=== PATIENT | male | born 1945 | race Caucasian/White ===

== ENCOUNTER 2017-02-02 14:16 | Inpatient (IN) ==
--- NOTE | 2017-02-02 14:24 | Emergency Department Note ---
Disposition Clinical Impression: Dizziness Disposition: Admitted As Inpatient Condition: Good General Adult HPI - General Chief complaint: ED Neuro Symptoms/Deficit Stated complaint: Poss CVA Time Seen by Provider: 02/02/17 14:18 - Related Data Home Medications Medication Instructions Recorded Confirmed Acetaminophen [Tylenol] 650 mg PO Q6HR 02/02/17 02/02/17 Amitriptyline HCl 75 mg PO HS 02/02/17 02/02/17 Aspirin Enteric Coated [Aspirin EC] 81 mg PO Q72H 02/02/17 02/02/17 Carbidopa/Levodopa 10/100 [Sinemet 2 each PO TID 02/02/17 02/02/17 10/100] Cholecalciferol (D-3) [Vitamin D] 2,000 unit PO DAILY 02/02/17 02/02/17 Duloxetine HCl [Cymbalta] 120 mg PO DAILY 02/02/17 02/02/17 Furosemide [Lasix] 20 mg PO DAILY PRN 02/02/17 02/02/17 GuaiFENesin/Dextromethorphan 10 ml PO Q4H PRN 02/02/17 02/02/17 [Tussin Dm Syrup] Insulin ASPART [Novolog Flexpen] 20 unit SQ 0800,1200 02/02/17 02/02/17 Insulin ASPART [Novolog Flexpen] 22 unit SQ 1700 02/02/17 02/02/17 Insulin Glargine,Hum.rec.anlog 52 unit SQ BID 02/02/17 02/02/17 [Basaglar Kwikpen U-100] Lisinopril/Hydrochlorothiazide 1 each PO DAILY 02/02/17 02/02/17 [Zestoretic 20-25 mg Tablet] OXcarbazepine [Oxcarbazepine] 600 mg PO BID 02/02/17 02/02/17 Omeprazole [PriLOSEC] 20 mg PO DAILY 02/02/17 02/02/17 Pregabalin [Lyrica] 50 mg PO BID 02/02/17 02/02/17 Propranolol HCl [Inderal LA] 160 mg PO QAM 02/02/17 02/02/17 Rosuvastatin [Crestor] 40 mg PO HS 02/02/17 02/02/17 Terazosin HCl 2 mg PO HS 02/02/17 02/02/17 rOPINIRole [Requip] 1 mg PO TID 02/02/17 02/02/17 Allergies Allergy/AdvReac Type Severity Reaction Status Date / Time simvastatin AdvReac Muscle Pain Verified 02/02/17 16:20 Past Medical History - Past Medical History Medical history: Reports: CVA, diabetes, hypertension, myocardial infarction Surgical history: Reports: angioplasty/stent, orthopedic, other Psychiatric history: Reports: depression, PTSD - Social History Smoking Status: Former smoker Alcohol use: Reports: none Drug use: Reports: none Course Vital Signs Temperature 97.8 F 02/02/17 14:21 Pulse Rate 70 02/02/17 14:21 Respiratory Rate 18 02/02/17 14:21 Blood Pressure 147/79 02/02/17 14:21 O2 Sat by Pulse Oximetry 98 02/02/17 14:21 Temperature 98 F 02/03/17 05:46 Pulse Rate 70 02/03/17 05:46 Respiratory Rate 16 02/03/17 05:46 Blood Pressure 151/79 02/03/17 05:46 O2 Sat by Pulse Oximetry 95 02/03/17 04:14 Oxygen Delivery Oxygen Delivery Room Air Medical Decision Making - Lab Data Result diagrams: 02/02/17 14:29 02/03/17 06:15 Lab Results 02/02/17 02/02/17 02/02/17 Range/Units 14:20 14:29 14:29 WBC 5.6 (4.3-11.1) K/mcL RBC 4.37 (4.19-5.50) M/mcL Hgb 13.0 (12.9-16.9) g/dL Hct 39.9 (37.5-50.1) % MCV 91.3 (83.0-100.0) fL MCH 29.7 (28.0-33.3) pg MCHC 32.6 (31.6-35.5) g/dL RDW 13.3 (11.5-14.5) % Plt Count 108 L (140-400) K/mcL MPV 9.9 (9.4-12.4) fL Immature Gran % 0.4 (0-4) % Seg Neutrophils % 61.1 % Lymphocytes % 23.9 % Monocytes % 11.4 % Eosinophils % 2.5 % Basophils % 0.7 % Neutrophils # 3.4 (1.6-8.9) K/mcL Lymphocytes # 1.3 (0.6-4.6) K/mcL Monocytes # 0.6 (0.0-1.3) K/mcL Eosinophils # 0.1 (0.0-0.6) K/mcL Basophils # 0.0 (0.0-0.2) K/mcL Platelet Estimate Decreased L (Normal) Immature Plt Fraction 4.0 (1.1-6.1) % PT 11.6 (9.4-12.1) Seconds INR 1.1 Sodium (136-145) mEq/L Potassium (3.5-4.5) mEq/L Chloride (98-109) mEq/L Carbon Dioxide (19-29) mEq/L BUN (8-26) mg/dL Creatinine (0.72-1.25) mg/dL Est GFR ( Amer) (> 60) Est GFR (Non-Af Amer) (> 60) BUN/Creatinine Ratio (6-26) Glucose (70-99) mg/dL POC Glucose 394 H (58-89) Est Mean Plasma Glucose mg/dl Hemoglobin A1c ( - 5.6) % Calculated Osmolality (280-300) Calcium (8.6-10.8) mg/dL Total Bilirubin (0.2-1.2) mg/dL AST (5-34) Units/L ALT (0-55) Units/L Alkaline Phosphatase (38-126) Units/L Troponin I (0-0.03) ng/mL Serum Total Protein (6.0-8.3) g/dL Albumin (3.5-5.0) g/dL Globulin (2.4-3.5) g/dL Albumin/Globulin Ratio (1.1-2.2) Urine Color (Yellow) Urine Clarity (Clear) Urine pH (5.0-8.0) pH Units Ur Specific [place] (1.010-1.025) Urine Protein (Neg-Trace) mg/dL Urine Glucose (UA) (Normal) mg/dL Urine Ketones (Negative) mg/dL Urine Blood (Negative) Urine Nitrite (Negative) Urine Bilirubin (Negative) Urine Urobilinogen (Normal) mg/dL Ur Leukocyte Esterase (Negative) Urine Microscopic RBC (0-3) per hpf Urine Microscopic WBC (0-3) per hpf Ur Squamous Epith Cells (None-Few) per lpf Urine Bacteria (None-Few) per hpf Hyaline Casts (None-Few) per lpf Ur Culture Indicated? (NO) 02/02/17 02/02/17 02/02/17 Range/Units 14:29 14:29 14:29 WBC (4.3-11.1) K/mcL RBC (4.19-5.50) M/mcL Hgb (12.9-16.9) g/dL Hct (37.5-50.1) % MCV (83.0-100.0) fL MCH (28.0-33.3) pg MCHC (31.6-35.5) g/dL RDW (11.5-14.5) % Plt Count (140-400) K/mcL MPV (9.4-12.4) fL Immature Gran % (0-4) % Seg Neutrophils % % Lymphocytes % % Monocytes % % Eosinophils % % Basophils % % Neutrophils # (1.6-8.9) K/mcL Lymphocytes # (0.6-4.6) K/mcL Monocytes # (0.0-1.3) K/mcL Eosinophils # (0.0-0.6) K/mcL Basophils # (0.0-0.2) K/mcL Platelet Estimate (Normal) Immature Plt Fraction (1.1-6.1) % PT (9.4-12.1) Seconds INR Sodium 136 (136-145) mEq/L Potassium 3.8 (3.5-4.5) mEq/L Chloride 100 (98-109) mEq/L Carbon Dioxide 28 (19-29) mEq/L BUN 33 H (8-26) mg/dL Creatinine 1.99 H (0.72-1.25) mg/dL Est GFR ( Amer) 41 L (> 60) Est GFR (Non-Af Amer) 33 L (> 60) BUN/Creatinine Ratio 17 (6-26) Glucose 419 H (70-99) mg/dL POC Glucose (58-89) Est Mean Plasma Glucose 186 mg/dl Hemoglobin A1c 8.1 H ( - 5.6) % Calculated Osmolality 307 H (280-300) Calcium 9.2 (8.6-10.8) mg/dL Total Bilirubin 0.4 (0.2-1.2) mg/dL AST 27 (5-34) Units/L ALT < 6 (0-55) Units/L Alkaline Phosphatase 55 (38-126) Units/L Troponin I 0.02 (0-0.03) ng/mL Serum Total Protein 7.2 (6.0-8.3) g/dL Albumin 3.6 (3.5-5.0) g/dL Globulin 3.6 H (2.4-3.5) g/dL Albumin/Globulin Ratio 1.0 L (1.1-2.2) Urine Color (Yellow) Urine Clarity (Clear) Urine pH (5.0-8.0) pH Units Ur Specific [place] (1.010-1.025) Urine Protein (Neg-Trace) mg/dL Urine Glucose (UA) (Normal) mg/dL Urine Ketones (Negative) mg/dL Urine Blood (Negative) Urine Nitrite (Negative) Urine Bilirubin (Negative) Urine Urobilinogen (Normal) mg/dL Ur Leukocyte Esterase (Negative) Urine Microscopic RBC (0-3) per hpf Urine Microscopic WBC (0-3) per hpf Ur Squamous Epith Cells (None-Few) per lpf Urine Bacteria (None-Few) per hpf Hyaline Casts (None-Few) per lpf Ur Culture Indicated? (NO) 02/02/17 Range/Units 14:50 WBC (4.3-11.1) K/mcL RBC (4.19-5.50) M/mcL Hgb (12.9-16.9) g/dL Hct (37.5-50.1) % MCV (83.0-100.0) fL MCH (28.0-33.3) pg MCHC (31.6-35.5) g/dL RDW (11.5-14.5) % Plt Count (140-400) K/mcL MPV (9.4-12.4) fL Immature Gran % (0-4) % Seg Neutrophils % % Lymphocytes % % Monocytes % % Eosinophils % % Basophils % % Neutrophils # (1.6-8.9) K/mcL Lymphocytes # (0.6-4.6) K/mcL Monocytes # (0.0-1.3) K/mcL Eosinophils # (0.0-0.6) K/mcL Basophils # (0.0-0.2) K/mcL Platelet Estimate (Normal) Immature Plt Fraction (1.1-6.1) % PT (9.4-12.1) Seconds INR Sodium (136-145) mEq/L Potassium (3.5-4.5) mEq/L Chloride (98-109) mEq/L Carbon Dioxide (19-29) mEq/L BUN (8-26) mg/dL Creatinine (0.72-1.25) mg/dL Est GFR ( Amer) (> 60) Est GFR (Non-Af Amer) (> 60) BUN/Creatinine Ratio (6-26) Glucose (70-99) mg/dL POC Glucose (58-89) Est Mean Plasma Glucose mg/dl Hemoglobin A1c ( - 5.6) % Calculated Osmolality (280-300) Calcium (8.6-10.8) mg/dL Total Bilirubin (0.2-1.2) mg/dL AST (5-34) Units/L ALT (0-55) Units/L Alkaline Phosphatase (38-126) Units/L Troponin I (0-0.03) ng/mL Serum Total Protein (6.0-8.3) g/dL Albumin (3.5-5.0) g/dL Globulin (2.4-3.5) g/dL Albumin/Globulin Ratio (1.1-2.2) Urine Color Yellow (Yellow) Urine Clarity Cloudy A (Clear) Urine pH 6.0 (5.0-8.0) pH Units Ur Specific [place] 1.025 (1.010-1.025) Urine Protein 100 H (Neg-Trace) mg/dL Urine Glucose (UA) >=1000 H (Normal) mg/dL Urine Ketones Negative (Negative) mg/dL Urine Blood Negative (Negative) Urine Nitrite Negative (Negative) Urine Bilirubin Negative (Negative) Urine Urobilinogen Normal (Normal) mg/dL Ur Leukocyte Esterase Negative (Negative) Urine Microscopic RBC 0-3 (0-3) per hpf Urine Microscopic WBC 3-5 H (0-3) per hpf Ur Squamous Epith Cells Many H (None-Few) per lpf Urine Bacteria None Seen (None-Few) per hpf Hyaline Casts None Seen (None-Few) per lpf Ur Culture Indicated? NO (NO) Attestation Statement - Attestation Attestation: I examined this patient and my medical decision-making was reviewed with the Resident Physician. I agree with the documented findings, disposition and treatment plan as described except to the extent set forth below. [id number] time provided Patient transferred from the [facility]. Symptoms started approximately 2-1/2 hours. Patient states it "felt like I was drunk." He felt dizzy. He states his legs were weak bilaterally. He has a history of chronic debility involving his left upper extremity. Left upper extremity contracture on exam. EKG from the [facility] reviewed by me 16:18: Stroke alert not activated due to resolution of symptoms
--- NOTE | 2017-02-02 14:25 | Emergency Department Note ---
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 Patient developed generalized weakness and was unable to stand around noon today. He then presented to the [facility]. They transferred him here. Patient has no complaints at this time. He does have chronic contractures of his left lower extremity from her previous trauma. - Related Data Home Medications Medication Instructions Recorded Confirmed Acetaminophen [Tylenol] 650 mg PO Q6HR 02/02/17 02/02/17 Amitriptyline HCl 75 mg PO HS 02/02/17 02/02/17 Aspirin Enteric Coated [Aspirin EC] 81 mg PO Q72H 02/02/17 02/02/17 Carbidopa/Levodopa 10/100 [Sinemet 2 each PO TID 02/02/17 02/02/17 10/100] Cholecalciferol (D-3) [Vitamin D] 2,000 unit PO DAILY 02/02/17 02/02/17 Duloxetine HCl [Cymbalta] 120 mg PO DAILY 02/02/17 02/02/17 Furosemide [Lasix] 20 mg PO DAILY PRN 02/02/17 02/02/17 GuaiFENesin/Dextromethorphan 10 ml PO Q4H PRN 02/02/17 02/02/17 [Tussin Dm Syrup] Insulin ASPART [Novolog Flexpen] 20 unit SQ 0800,1200 02/02/17 02/02/17 Insulin ASPART [Novolog Flexpen] 22 unit SQ 1700 02/02/17 02/02/17 Insulin Glargine,Hum.rec.anlog 52 unit SQ BID 02/02/17 02/02/17 [Basaglar Kwikpen U-100] Lisinopril/Hydrochlorothiazide 1 each PO DAILY 02/02/17 02/02/17 [Zestoretic 20-25 mg Tablet] OXcarbazepine [Oxcarbazepine] 600 mg PO BID 02/02/17 02/02/17 Omeprazole [PriLOSEC] 20 mg PO DAILY 02/02/17 02/02/17 Pregabalin [Lyrica] 50 mg PO BID 02/02/17 02/02/17 Propranolol HCl [Inderal LA] 160 mg PO QAM 02/02/17 02/02/17 Rosuvastatin [Crestor] 40 mg PO HS 02/02/17 02/02/17 Terazosin HCl 2 mg PO HS 02/02/17 02/02/17 rOPINIRole [Requip] 1 mg PO TID 02/02/17 02/02/17 Allergies Allergy/AdvReac Type Severity Reaction Status Date / Time simvastatin AdvReac Muscle Pain Verified 02/02/17 16:20 All systems ED: reviewed and negative except as stated. Constitutional: Denies: fever, chills Eyes: Denies: vision change Cardiovascular: Denies: chest pain, palpitations, syncope Respiratory: Denies: cough, dyspnea, wheezes Gastrointestinal: Denies: abdominal pain, nausea, vomiting, diarrhea, hematemesis Genitourinary: Denies: urgency, dysuria, frequency Musculoskeletal: Denies: back pain, neck pain Integumentary: Denies: rash Neurological: Reports: weakness, vertigo Past Medical History - Past Medical History Medical history: Reports: CVA, diabetes, hypertension, myocardial infarction Surgical history: Reports: angioplasty/stent, orthopedic, other Psychiatric history: Reports: depression, PTSD - Social History Smoking Status: Former smoker Alcohol use: Reports: none Drug use: Reports: none Physical Exam - General Limitations: no limitations General appearance: alert, in no apparent distress - Head Head exam: atraumatic, normocephalic, normal inspection - Eye Eye exam: Present: normal appearance, PERRL, EOMI. Absent: scleral icterus - ENT ENT exam: normal exam, normal oropharynx, mucous membranes moist - Neck Neck exam: Present: normal inspection, full ROM, trachea midline. Absent: tenderness, meningismus, lymphadenopathy - Chest Chest inspection: Present: normal inspection. Absent: tenderness, rash - Respiratory Respiratory exam: Present: normal lung sounds bilaterally. Absent: respiratory distress, accessory muscle use - Cardiovascular Cardiovascular exam: Present: regular rate, normal rhythm, normal heart sounds - Abdominal Exam Abdominal exam: Present: soft, Non-Tender, normal bowel sounds. Absent: tenderness, distention, guarding, rebound, rigidity, organomegaly - Extremities Exam Extremities exam: Present: normal inspection, full ROM, normal capillary refill. Absent: tenderness, pedal edema - Back Exam Back exam: Present: normal inspection, full ROM. Absent: tenderness - Neurological Exam Neurological exam: Present: alert, oriented X3, CN II-XII intact, motor sensory deficit (Of left upper arm. Previous traumatic injury.) - Psychiatric Psychiatric exam: Present: normal affect, normal mood - Skin Skin exam: Present: warm, dry, intact, normal color. Absent: rash, cyanosis Course Course Narrative: Being transferred from the [facility] for strokelike symptoms. Patient states that at noon today which was about 2-1/2 hours ago he was ambulating to the kitchen sink when he felt drunk. States that his legs got weak bilaterally. On exam he is alert and oriented 3. He does have chronic left upper extremity contractures from her previous injury. Other than this there are no neurologic deficits. He states that his symptoms have almost completely resolved. He does feel mildly dizzy at this time. Pupils are equal and reactive to light and he has no signs of nystagmus. Patient states he does have a history of a previous stroke in February in his eyes. Currently his lung sounds are clear heart tones are normal abdomen is soft nontender. He is mentating appropriately the only deficit of chronic contractures to his left upper extremity. He denies any trauma today. Patient currently only complains of some mild dizziness. We will get a head CT a patient do basic lab workup. Patient does have a decreased heel to may as well as finger to nose however patient's family states this is normal for him. - Reevaluation(s) Reevaluation #1: Patient's head CT was read as possible artifact versus infarct in the pontine area. They are requesting an MRI for further evaluation. With this. On reevaluation patient is mentating appropriately and requesting discharge. However he states that he is now having some blurry vision in his left eye. He states that this happens to him sometimes however it was not present when he came in. He denies any visual field deficits. There are none on exam. He just describes it as blurry vision. He is agreeable to admission and MRI. Time: 16:32 - Consultations Consultation #1: [facility] accepted Pt in stable condition. Time: 17:39 Vital Signs Temperature 97.8 F 02/02/17 14:21 Pulse Rate 70 02/02/17 14:21 Respiratory Rate 18 02/02/17 14:21 Blood Pressure 147/79 02/02/17 14:21 O2 Sat by Pulse Oximetry 98 02/02/17 14:21 Temperature 97.8 F 02/02/17 14:21 Pulse Rate 67 02/02/17 17:24 Respiratory Rate 18 02/02/17 18:51 Blood Pressure 167/78 02/02/17 18:51 O2 Sat by Pulse Oximetry 96 02/02/17 17:24 Oxygen Delivery Oxygen Delivery Room Air Medical Decision Making - Medical Records Medical records reviewed: Yes I reviewed the patient's medical records. - Lab Data Lab results reviewed: Yes I reviewed the patient's lab results. Result diagrams: 02/02/17 14:29 02/02/17 14:29 Lab Results 02/02/17 02/02/17 02/02/17 Range/Units 14:20 14:29 14:29 WBC 5.6 (4.3-11.1) K/mcL RBC 4.37 (4.19-5.50) M/mcL Hgb 13.0 (12.9-16.9) g/dL Hct 39.9 (37.5-50.1) % MCV 91.3 (83.0-100.0) fL MCH 29.7 (28.0-33.3) pg MCHC 32.6 (31.6-35.5) g/dL RDW 13.3 (11.5-14.5) % Plt Count 108 L (140-400) K/mcL MPV 9.9 (9.4-12.4) fL Immature Gran % 0.4 (0-4) % Seg Neutrophils % 61.1 % Lymphocytes % 23.9 % Monocytes % 11.4 % Eosinophils % 2.5 % Basophils % 0.7 % Neutrophils # 3.4 (1.6-8.9) K/mcL Lymphocytes # 1.3 (0.6-4.6) K/mcL Monocytes # 0.6 (0.0-1.3) K/mcL Eosinophils # 0.1 (0.0-0.6) K/mcL Basophils # 0.0 (0.0-0.2) K/mcL Platelet Estimate Decreased L (Normal) Immature Plt Fraction 4.0 (1.1-6.1) % PT 11.6 (9.4-12.1) Seconds INR 1.1 Sodium (136-145) mEq/L Potassium (3.5-4.5) mEq/L Chloride (98-109) mEq/L Carbon Dioxide (19-29) mEq/L BUN (8-26) mg/dL Creatinine (0.72-1.25) mg/dL Est GFR ( Amer) (> 60) Est GFR (Non-Af Amer) (> 60) BUN/Creatinine Ratio (6-26) Glucose (70-99) mg/dL POC Glucose 394 H (58-89) Calculated Osmolality (280-300) Calcium (8.6-10.8) mg/dL Total Bilirubin (0.2-1.2) mg/dL AST (5-34) Units/L ALT (0-55) Units/L Alkaline Phosphatase (38-126) Units/L Troponin I (0-0.03) ng/mL Serum Total Protein (6.0-8.3) g/dL Albumin (3.5-5.0) g/dL Globulin (2.4-3.5) g/dL Albumin/Globulin Ratio (1.1-2.2) Urine Color (Yellow) Urine Clarity (Clear) Urine pH (5.0-8.0) pH Units Ur Specific [place] (1.010-1.025) Urine Protein (Neg-Trace) mg/dL Urine Glucose (UA) (Normal) mg/dL Urine Ketones (Negative) mg/dL Urine Blood (Negative) Urine Nitrite (Negative) Urine Bilirubin (Negative) Urine Urobilinogen (Normal) mg/dL Ur Leukocyte Esterase (Negative) Urine Microscopic RBC (0-3) per hpf Urine Microscopic WBC (0-3) per hpf Ur Squamous Epith Cells (None-Few) per lpf Urine Bacteria (None-Few) per hpf Hyaline Casts (None-Few) per lpf Ur Culture Indicated? (NO) 02/02/17 02/02/17 02/02/17 Range/Units 14:29 14:29 14:50 WBC (4.3-11.1) K/mcL RBC (4.19-5.50) M/mcL Hgb (12.9-16.9) g/dL Hct (37.5-50.1) % MCV (83.0-100.0) fL MCH (28.0-33.3) pg MCHC (31.6-35.5) g/dL RDW (11.5-14.5) % Plt Count (140-400) K/mcL MPV (9.4-12.4) fL Immature Gran % (0-4) % Seg Neutrophils % % Lymphocytes % % Monocytes % % Eosinophils % % Basophils % % Neutrophils # (1.6-8.9) K/mcL Lymphocytes # (0.6-4.6) K/mcL Monocytes # (0.0-1.3) K/mcL Eosinophils # (0.0-0.6) K/mcL Basophils # (0.0-0.2) K/mcL Platelet Estimate (Normal) Immature Plt Fraction (1.1-6.1) % PT (9.4-12.1) Seconds INR Sodium 136 (136-145) mEq/L Potassium 3.8 (3.5-4.5) mEq/L Chloride 100 (98-109) mEq/L Carbon Dioxide 28 (19-29) mEq/L BUN 33 H (8-26) mg/dL Creatinine 1.99 H (0.72-1.25) mg/dL Est GFR ( Amer) 41 L (> 60) Est GFR (Non-Af Amer) 33 L (> 60) BUN/Creatinine Ratio 17 (6-26) Glucose 419 H (70-99) mg/dL POC Glucose (58-89) Calculated Osmolality 307 H (280-300) Calcium 9.2 (8.6-10.8) mg/dL Total Bilirubin 0.4 (0.2-1.2) mg/dL AST 27 (5-34) Units/L ALT < 6 (0-55) Units/L Alkaline Phosphatase 55 (38-126) Units/L Troponin I 0.02 (0-0.03) ng/mL Serum Total Protein 7.2 (6.0-8.3) g/dL Albumin 3.6 (3.5-5.0) g/dL Globulin 3.6 H (2.4-3.5) g/dL Albumin/Globulin Ratio 1.0 L (1.1-2.2) Urine Color Yellow (Yellow) Urine Clarity Cloudy A (Clear) Urine pH 6.0 (5.0-8.0) pH Units Ur Specific [place] 1.025 (1.010-1.025) Urine Protein 100 H (Neg-Trace) mg/dL Urine Glucose (UA) >=1000 H (Normal) mg/dL Urine Ketones Negative (Negative) mg/dL Urine Blood Negative (Negative) Urine Nitrite Negative (Negative) Urine Bilirubin Negative (Negative) Urine Urobilinogen Normal (Normal) mg/dL Ur Leukocyte Esterase Negative (Negative) Urine Microscopic RBC 0-3 (0-3) per hpf Urine Microscopic WBC 3-5 H (0-3) per hpf Ur Squamous Epith Cells Many H (None-Few) per lpf Urine Bacteria None Seen (None-Few) per hpf Hyaline Casts None Seen (None-Few) per lpf Ur Culture Indicated? NO (NO) - Radiology Data Radiology results reviewed: Yes I reviewed the patient's radiology results. Chest X-Ray 02/02/17 14:23 IMPRESSION: No acute cardiopulmonary disease. D/ / Melvin Felix MD / Melvin Felix MD Interpreting Provider: Melvin Felix MD Head CT 02/02/17 14:23 IMPRESSION: Low density in the right paramedian alivia. While this could be artifactual, pontine infarction is also considered. Depending on clinical presentation, this may need further evaluation with brain MRI. 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 No evidence of intracranial hemorrhage. D/ / Amauri Reed MD / Amauri Reed MD Interpreting Provider: Amauri Reed MD Brain MRI 02/02/17 16:16 IMPRESSION: Multiple old infarcts with encephalomalacia and surrounding gliosis Mild small vessel ischemic change No acute infarct D/ / Brandon Espinoza / Brandon Espinoza Interpreting Provider: Brandon Espinoza - EKG Data EKG #1 EKG attestation: Yes I reviewed and interpreted this EKG. EKG results narrative: Normal sinus rhythm at a rate of 69. GA interval is 191. Respirations 94. QT is 397. QTC is 417. No signs of acute ischemia. No significant change from previous EKG dated 05 29 2015. NIH Stroke Scale - Level of Consciousness LOC: Alert - LOC Questions LOC Questions: Answers both correctly - LOC Commands LOC Commands: Performs both correctly - Best Gaze Best Gaze: Normal - Visual Visual: No visual loss - Facial Palsy Facial Palsy: Normal - Motor Arms Motor Arm-Left: No movement Motor Arm-Right: No drift for 10 seconds - Motor Legs Motor Leg-Left: No drift for 5 seconds Motor Leg-Right: No drift for 5 seconds - Limb Ataxia Limb Ataxia: Present in TWO limbs - Sensory Sensory: Normal - Best Language Best Language: No aphasia - Dysarthria Dysarthria: Normal - Extinction and Inattention Extinction and Inattention: Normal - NIHSS Total Score NIHSS Total Score: 6
[2017-02-02 14:39] LABS: Basophils % 0.7 %; Red Cell Distribution Width 13.3 % (11.5-14.5)
[2017-02-02 14:40] LABS: Eosinophils # 0.1 K/mcL (0.0-0.6); Eosinophils % 2.5 %; Hematocrit 39.9 % (37.5-50.1); Immature Granulocytes % 0.4 % (0-4); Lymphocytes # 1.3 K/mcL (0.6-4.6); Lymphocytes % 23.9 %; Mean Corpuscular HGB Conc 32.6 g/dL (31.6-35.5); Mean Corpuscular Hemoglobin 29.7 pg (28.0-33.3); Mean Corpuscular Volume 91.3 fL (83.0-100.0); Mean Platelet Volume 9.9 fL (9.4-12.4); Monocytes # 0.6 K/mcL (0.0-1.3); Monocytes % 11.4 %; Neutrophils # 3.4 K/mcL (1.6-8.9); Platelet Count 108 K/mcL (140-400); Red Blood Count 4.37 M/mcL (4.19-5.50); Segmented Neutrophils % 61.1 %
[2017-02-02 14:51] LABS: Albumin 3.6 g/dL (3.5-5.0); Alkaline Phosphatase 55 Units/L (38-126); Aspartate Amino Transferase 27 Units/L (5-34); BUN/Creatinine Ratio 17 (6-26); Bilirubin,Total 0.4 mg/dL (0.2-1.2); Blood Urea Nitrogen 33 mg/dL (8-26); Calcium 9.2 mg/dL (8.6-10.8); Carbon Dioxide 28 mEq/L (19-29); Chloride 100 mEq/L (98-109); Globulin 3.6 g/dL (2.4-3.5); Glucose 419 mg/dL (70-99); INR 1.1; Osmolality,Calculated 307 (280-300); Potassium 3.8 mEq/L (3.5-4.5); Prothrombin Time 11.6 Seconds (9.4-12.1); Sodium 136 mEq/L (136-145); Total Protein 7.2 g/dL (6.0-8.3); eGFR For African Americans 41 (> 60); eGFR For Non-African Americans 33 (> 60)
[2017-02-02 14:52] LABS: Alanine Aminotransferase < 6 Units/L (0-55)
[2017-02-02 14:55] LABS: Bilirubin,Urine Negative (Negative); Blood,Urine Negative (Negative); Clarity,Urine Cloudy (Clear); Color,Urine Yellow (Yellow); Glucose,Urine (UA) >=1000 mg/dL (Normal); Ketones,Urine Negative (Negative); Leukocyte Esterase,Urine Negative (Negative); Nitrite,Urine Negative (Negative); Protein,Urine 100 mg/dL (Neg-Trace); Specific Gravity,Urine 1.025 (1.010-1.025); Urobilinogen,Urine Normal (Normal)
[2017-02-02 14:59] LABS: Bacteria,Urine None Seen per hpf (None-Few); Hyaline Casts,Urine None Seen per lpf (None-Few); RBC,Urine 0-3 per hpf (0-3); Squamous Epithelial Cell,Urine Many per lpf (None-Few)
[2017-02-02 15:11] LABS: Platelet Estimate Decreased (Normal)
[2017-02-02] MEDS ORDERED: 0.9 % Sodium Chloride 500 ML IVC ONE (16:16)
[2017-02-02] MEDS ORDERED: *HR* HYDROmorphone (PF) 1 MG/ML SYRINGE IVP ONE (17:36)
[2017-02-02] MEDS ORDERED: Aspirin 81 MG TAB.CHEW ONE ×2 (19:03→19:04)
[2017-02-02] MEDS: Aspirin 81 MG TAB.CHEW PO ONE ×2 (19:04→22:17)
[2017-02-02] MEDS ORDERED: Naloxone 0.4 MG/ML INJ IVP PRN (20:24)
[2017-02-02] MEDS ORDERED: 0.9 % Sodium Chloride 1,000 ML IVC SCH (20:30)
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
[2017-02-02] MEDS ORDERED: *HR* Dextrose 50 % in Water (Syg) 50 ML SYRINGE IVP PRN (21:34)
[2017-02-02] MEDS ORDERED: Dextrose Gel 15 GM PO PRN ×2 (21:34)
[2017-02-02] MEDS ORDERED: D5% in Water 1,000 ML IVC PRN (21:34)
[2017-02-02] MEDS: Pregabalin 50 MG CAPSULE PO SCH (22:16)
[2017-02-02] MEDS: *HR* Heparin 5,000 UNIT/ML VIAL SQ SCH (22:16)
[2017-02-02] MEDS: OXcarbazepine 150 MG TABLET PO SCH (22:16)
[2017-02-02] MEDS: rOPINIRole 1 MG TABLET PO SCH (22:16)
[2017-02-02 22:34] LABS: Hemoglobin A1C 8.1 %
[2017-02-02] MEDS ORDERED: Acetaminophen 325 MG TABLET PO PRN (23:18)
[2017-02-03] MEDS: Insulin LISPRO 300 UNITS/3 ML VIAL SQ SCH ×5 (00:43→23:32)
[2017-02-03] MEDS: *HR* Heparin 5,000 UNIT/ML VIAL SQ SCH ×3 (05:41→22:22)
[2017-02-03] MEDS ORDERED: Famotidine 20 MG/2 ML VIAL IVP SCH (06:00)
[2017-02-03 06:43] LABS: Chol/HDL Ratio 5.7 (0-4.9); Potassium 3.8 mEq/L (3.5-4.5)
[2017-02-03] MEDS: Pregabalin 50 MG CAPSULE PO SCH ×2 (08:46→20:33)
[2017-02-03] MEDS: OXcarbazepine 150 MG TABLET PO SCH ×2 (08:47→20:34)
[2017-02-03] MEDS: rOPINIRole 1 MG TABLET PO SCH ×3 (08:48→20:34)
[2017-02-03] MEDS ORDERED: Aspirin Enteric Coated 81 MG Tablet PO SCH (09:00)
[2017-02-03] MEDS ORDERED: Propranolol LA (24 HR) 80 MG CAP.SA.24H PO SCH (09:00)
[2017-02-03] MEDS ORDERED: Perflutren Lipid Microsphere 1.3 ML in 0.9 % Sodium Chloride 8.7 ML IVP ONE (11:50)
[2017-02-03] MEDS ORDERED: Melatonin 3 MG TABLET PO PRN (12:50)
--- NOTE | 2017-02-03 13:01 | Internal Med Progress Note ---
Date of Encounter: 02/03/17 Time of Encounter: 08:25 - Assessment and plan (1) TIA (transient ischemic attack) Current Visit: Yes Status: Suspected Assessment and plan: Pt states that he has returned to his baseline. Denies dizziness, worsening blurry vision, weakness. Symptoms have resolved. Pt with slurred speech and chronic LUE paralysis and contractures. He states that his speech is back to normal. Symptoms lasted 2 hours and resolved. MRI negative for acute infarct. Head CT negative for intracranial hemorrhage. Echo and carotids are still pending. Head CT 02/02/17 14:23 IMPRESSION: Low density in the right paramedian alivia. While this could be artifactual, pontine infarction is also considered. Depending on clinical presentation, this may need further evaluation with brain MRI. 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 No evidence of intracranial hemorrhage. D/ / Amauri Reed MD / Amauri Reed MD Interpreting Provider: Amauri Reed MD Brain MRI 02/02/17 16:16 IMPRESSION: Multiple old infarcts with encephalomalacia and surrounding gliosis Mild small vessel ischemic change No acute infarct D/ / Brandon Espinoza / Brandon Espinoza Interpreting Provider: Brandon Espinoza Qualifiers: Transient cerebral ischemia type: unspecified Qualified Code(s): G45.9 - Transient cerebral ischemic attack, unspecified (2) Uncontrolled diabetes mellitus Current Visit: Yes Status: Acute Assessment and plan: A1c 8.1%. Continue SSI, accuchecks achs, and diabetic diet. 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 transplanted heart: [place] heart Associated angina: without angina Qualified Code(s): I25.10 - Atherosclerotic heart disease of [place] coronary artery without angina pectoris (4) Peripheral neuropathy Current Visit: Yes Status: Acute Assessment and plan: Continue PT/OT, better glycemic control. Qualifiers: Peripheral neuropathy type: polyneuropathy, unspecified Qualified Code(s): G62.9 - Polyneuropathy, unspecified (5) CKD (chronic kidney disease) stage 3, GFR 30-59 ml/min Current Visit: Yes Status: Acute Assessment and plan: Sr Cr 1.72, GFR 40. Improving since arrival. Continue to avoid nephrotoxins and NSAIDs. (6) History of Parkinson's disease Current Visit: Yes Status: Acute Assessment and plan: Chronic. Continue Sinemet. PT/OT on board. (7) DVT prophylaxis Current Visit: Yes Status: Acute Assessment and plan: Heparin SQ - Time Spent With Patient less than 15 minutes - Subjective Interval history: Patient states that he was sent here from the [facility] for dizziness and leg weakness bilaterally. He states he is returned to his baseline. Patient's speech is slightly slurred, which she states is normal for him. Patient states he does not remember any other symptoms on arrival and that he is back to baseline like to go home. At the time of this documentation at almost 1:00 PM, none of his test results are back yet. Patient also states that he had difficulty sleeping last night due to staff in and out of his room. I prescribed melatonin 3 mg by mouth when necessary for insomnia. - Constitutional Vitals: Temp Pulse Resp BP Pulse Ox 98.1 F 69 16 158/86 92 02/03/17 10:37 02/03/17 10:37 02/03/17 10:37 02/03/17 10:37 02/03/17 10:37 General appearance: Present: cooperative, A&O X 3, pleasant, no acute distress, answers questions appropriately - Head Head exam: Present: normal inspection - Eye Eye exam: Present: normal appearance, conjuntiva pink - ENT ENT exam: Present: mucous membranes moist, normal external ear exam. Absent: normal exam - Neck Neck exam general surgery: Present: normal inspection. Absent: lymphadenopathy , tenderness - Respiratory Respiratory exam: Present: decreased breath sounds, CTAB. Absent: chest wall tenderness, rales, respiratory distress, rhonchi, stridor, wheezes - Cardiovascular Cardiovascular exam: Present: RRR, +S1, +S2. Absent: clicks, diastolic murmur, gallop, systolic murmur - GI/Abdominal GI/Abdominal exam: Present: distended, firm, normal bowel sounds, soft. Absent : tenderness - Extremities Exam Extremities exam: Present: normal capillary refill, normal inspection, warm, radial pulses palpable and symmetrical. Absent: joint swelling, pedal edema, tenderness - Neurological Exam Neurological exam: Present: alert, oriented X3, pronater drift, facial droop, speech deficit. Absent: no focal deficits, strengths equal and symetr throughout - Skin Skin exam: Present: dry, intact, normal color, warm. Absent: rash, urticaria Internal Medicine: Result - Labs CBC & Chem 7: 02/02/17 14:29 02/03/17 06:15 Labs: BMP 02/03/17 06:15 Sodium 139 Potassium 3.8 Chloride 105 Carbon Dioxide 28 BUN 28 H Creatinine 1.72 H Glucose 190 H Calcium 9.0 - ABG Interpretation ABG results: PT/INR, D-dimer PT 11.6 Seconds (9.4-12.1) 02/02/17 14:29 Consult Discharge Plan - Plan [facility]Primary Care Provider[facility] -
--- NOTE | 2017-02-03 14:53 | Electrocardiograph Report ---
[place] [id number] Test Date: 2017-02-02 Pat Name: Lino Lopez Department: 0 Room: 3B16 Gender: M Route Supervisor: Msc : [id number] Requested By: Cindy Gutierrez Order Number: [id number] Reading MD: Bradford Neely MD Measurements Intervals [place] Rate: 69 P: 1 ID: [id number] QRS: 14 QRSD: 94 T: 15 QT: 397 QTc: 417 Interpretive Statements SINUS RHYTHM LEFT VENTRICULAR HYPERTROPHY Electronically Signed On 02-03-2017 14:52:18 EDT by Bradford Neely MD
[2017-02-04 04:22] LABS: Basophils % 0.9 %; Immature Granulocytes % 0.3 % (0-4)
[2017-02-04 04:23] LABS: Basophils # 0.1 K/mcL (0.0-0.2); Eosinophils # 0.2 K/mcL (0.0-0.6); Eosinophils % 3.1 %; Hematocrit 38.4 % (37.5-50.1); Hemoglobin 12.4 g/dL (12.9-16.9); Immature Platelets 4.6 % (1.1-6.1); Lymphocytes # 2.3 K/mcL (0.6-4.6); Mean Corpuscular HGB Conc 32.3 g/dL (31.6-35.5); Mean Corpuscular Hemoglobin 29.7 pg (28.0-33.3); Mean Corpuscular Volume 92.1 fL (83.0-100.0); Monocytes # 0.6 K/mcL (0.0-1.3); Monocytes % 10.9 %; Neutrophils # 2.6 K/mcL (1.6-8.9); Platelet Count 102 K/mcL (140-400); Red Blood Count 4.17 M/mcL (4.19-5.50); Red Cell Distribution Width 13.3 % (11.5-14.5); Segmented Neutrophils % 44.8 %
[2017-02-04 04:34] LABS: Calcium 9.3 mg/dL (8.6-10.8)
[2017-02-04 04:44] LABS: Potassium 3.9 mEq/L (3.5-4.5)
[2017-02-04] MEDS: Insulin LISPRO 300 UNITS/3 ML VIAL SQ SCH (05:54)
[2017-02-04] MEDS: *HR* Heparin 5,000 UNIT/ML VIAL SQ SCH (05:55)
[2017-02-04] MEDS ORDERED: Famotidine 20 MG/2 ML VIAL IVP SCH (06:00)
[2017-02-04 06:56] VITALS: BP 163/68
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
--- NOTE | 2017-02-05 07:08 | Carotid Imaging Report ---
Carotid Duplex Patient Name:Lino Lopez Order Number:[id number] Procedure Date:02/03/2017 Date:8Age:71 yrs Gender:Male Lt BP:161 / 86 mmHg Rt.BP:158 / 86 mmHgHeart Rate: Location:[facility] Room #: 3B16 Lining Cementer:Leticia Marcus, ESTELA, RVT Referring MD:Jean Powers DO tray delivery aide:[facility] Reading MD:Brandon Humphrey MD Primary Indications:Transient Ischemic Attack Risk Factors Yes/No Hypertension Yes Diabetes Yes Hypercholesterolemia No Smoker Previous Yes Hx of TIA Unknown Hx of CVA Yes Impressions: The bilateral carotid arteries have minimal plaque throughout. Recommendations: After imaging the patient returned to their room. Findings Carotid Duplex: Right: There is nonstenotic plaque in the right mid common carotid artery. There is smooth, heterogeneous calcified plaque. There is nonstenotic plaque in the right distal common carotid artery. There is smooth, heterogeneous calcified plaque. There is nonstenotic plaque in the right bifurcation. There is irregular, heterogeneous calcified plaque. There is nonstenotic plaque in the right proximal internal carotid artery. There is irregular heterogeneous plaque. There is nonstenotic plaque in the right mid internal carotid artery. There is irregular heterogeneous plaque. There is nonstenotic plaque in the right distal internal carotid artery. There is irregular heterogeneous plaque. The right eca has turbulent flow with plaque. There is smooth, heterogeneous calcified plaque. There is antegrade spectral Doppler flow patterns in the right vertebral artery. Left: There is nonstenotic plaque in the left proximal common carotid artery. There is smooth heterogeneous plaque. There is nonstenotic plaque in the left mid common carotid artery. There is smooth, heterogeneous calcified plaque. There is nonstenotic plaque in the left distal common carotid artery. There is smooth, heterogeneous calcified plaque. There is nonstenotic plaque in the left bifurcation. There is irregular heterogeneous plaque. There is nonstenotic plaque in the left proximal internal carotid artery. There is irregular heterogeneous plaque. There is nonstenotic plaque in the left mid internal carotid artery. There is irregular heterogeneous plaque. There is nonstenotic plaque in the left distal internal carotid artery. There is irregular heterogeneous plaque. There is nonstenotic plaque in the left eca. There is irregular heterogeneous plaque. There is antegrade spectral Doppler flow patterns in the left vertebral artery. Prior Study: No prior study available for comparison. Carotid Results Right PSV EDV Assessment Proximal CCA 60 14 Normal Mid CCA 61 10 Non Stenotic Plaque Distal CCA 60 12 Non Stenotic Plaque Bifurcation 38 10 Non Stenotic Plaque Proximal ICA 50 13 Non Stenotic Plaque Mid ICA 62 15 Non Stenotic Plaque Distal ICA 60 22 Non Stenotic Plaque ECA 198 14 Turbulent Flow Vertebral Artery 44 10 Antegrade Flow Left PSV EDV Assessment Proximal CCA 75 9 Non Stenotic Plaque Mid CCA 68 11 Non Stenotic Plaque Distal CCA 52 9 Non Stenotic Plaque Bifurcation 44 11 Non Stenotic Plaque Proximal ICA 71 16 Non Stenotic Plaque Mid ICA 60 18 Non Stenotic Plaque Distal ICA 65 21 Non Stenotic Plaque ECA 90 9 Non Stenotic Plaque Vertebral Artery 24 7 Antegrade Flow Ratio's Right ICA/CCA Ratio: 1.02 ICA/CCA Values: 62/61 Left ICA/CCA Ratio: 1.04 ICA/CCA Values: 71/68 Updated by Brandon Humphrey MD on 02/05/2017 7:01:00 AM electronically signed on 02/05/2017 7:01:20 AM with status of Final
== END 2017-02-04 11:20 | disposition home or self-care (01) | DRG 69 ==
LOC: EMEROO 14:16 → 3BNU 18:26
PROVIDERS: ADMIT Pediatrics; ATTEND Registered Nurse